=== PATIENT | female | born 1930 | race Caucasian/White ===

== ENCOUNTER 2017-09-13 09:27 | Emergency (ER) | payer MEDICARE, BC ==
[~2017-09-13] VITALS: Ht 160 cm; Wt 64.9 kg
[~2017-09-13 09:27] MED LIST: CARDIZEM CD120 MG PO; CARDIZEM CD240 MG PO; CIPRO250 M1 PO; COUMADIN 4 MG TA4 M1 PO; DIOVAN 80 MG TA80 M1 PO; HYDRALAZINE 2525 MG PO; HYZAAR 100-251 EACH PO; ICAPS MV TABLE1 EAC1 PO; KLOR-CON 1010 MEQ PO; LEVOTHYROXIN0.025 MG PO; LEVOTHYROXINE0.05 MG PO; LEXAPRO 10 MG T10 M2 PO; NORVASC5 MG PO; OXYBUTYNIN CHLO10 MG PO; POTASSIUM20 PO; PROTONIX40 M1 PO; PYRIDIUM200 MG PO; TEKTURNA150 MG PO; TUMS PO; VITAMIN D1000 UNI1 PO; XARELTO15 MG PO; ZANTAC 150MG T150 MG PO; ZOCOR 10 MG TAB10 MG PO
[2017-09-13 10:06] LABS: URINE BILIRUBIN NEGATIVE (Negative); URINE BLOOD 2+ (Negative); URINE CLARITY CLEAR; URINE COLOR ORANGE; URINE GLUCOSE-RANDOM TRACE (Negative); URINE KETONES NEGATIVE (Negative); URINE PROTEIN 1+ (Negative)
[2017-09-13 10:07] LABS: URINE LEUKOCYTES-REFLEX 3+ (Negative); URINE NITRITE-REFLEX POSITIVE (Negative)
[2017-09-13 10:14] LABS: WBC CLUMPS Many (None Seen)
[2017-09-13 10:15] LABS: SQUAMOUS 0-3 Few /LPF (0-3); URINE RBC 3-10 Few /HPF (0-2); URINE WBC-REFLEX >25 Many /HPF (0-5)
[2017-09-13 10:16] LABS: CASTS None Seen /LPF (None Seen); CRYSTALS None Seen /LPF (None Seen); TRANSITIONAL EPITHEL CELL 0-3 Few /LPF (None Seen)
[2017-09-13 10:25] LABS: ABSOLUTE BASOPHILS 0.1 thou/uL (0.0-0.2); ABSOLUTE MONOCYTES 0.7 thou/uL (0.0-1.2); ABSOLUTE NEUTROPHILS 7.2 thou/uL (1.6-8.1); BASOPHILS 1.1 %; EOSINOPHILS 0.3 %; HEMATOCRIT 35.4 % (37.0-47.0); HEMOGLOBIN 12.1 gm/dL (12.0-15.0); LYMPHOCYTES 10.8 %; MCHC 34.1 g/dL (28.0-37.0); MCV 84.8 fL (80.0-100.0); MONOCYTES 7.7 %; NUCLEATED RBCS 0 /100WBC; PLATELET COUNT* 409 thou/uL (150-400); POLYS 80.1 %; RBC 4.18 mil/uL (4.20-5.00); RDW-CV 12.7 % (10.5-14.5)
[2017-09-13 10:40] LABS: CALCIUM 8.7 mg/dL (8.5-10.1); CREATININE 1.1 mg/dL (0.6-1.3); POTASSIUM 4.1 mmol/L (3.5-5.1)
[2017-09-13 10:44] LABS: ALBUMIN 3.2 g/dL (3.4-5.0); TOTAL BILIRUBIN 0.4 mg/dL (<0.1-1.0); TOTAL PROTEIN 6.7 g/dL (6.4-8.2)
[2017-09-13 11:07] LABS: APTT 39.6 Seconds (25.0-31.3); INR 1.2
[2017-09-13] MEDS ORDERED: MACROBID 100 M100 M2 PO (11:55)
[2017-09-13 12:10] VITALS: BP 148/98
--- NOTE | 2017-09-13 14:43 | EKG ---
[place] [address] ELECTROCARDIOGRAM REPORT Name: CARDENASMEHDI Dev Room: [facility]#: [id number] Admission: 09/13/17 Attend Phys: Discharge: 09/13/17 Date of : [birth year] Report #: [id number] THIS REPORT FOR: //name// [facility] ED Test Date: 2017-09-13 Test Time: 10:04:10 Pat Name: MEHDI CARDENAS Department: Room: Gender: F Manager School: [employer] STUDENT : 1930 Requested By: Kimber Dobson Order Number: [id number] Korey MD: Remigio Hammer Measurements Intervals [place] Rate: 113 P: DC: QRS: 5 QRSD: 94 T: -10 QT: 335 QTc: 460 Interpretive Statements Atrial fibrillation Abnrm T, probable ischemia, anterolateral lds Baseline wander in lead(s) V3,V5,V6 No previous ECG available for comparison Electronically Signed On 09-13-2017 14:43:10 EPITAXIAL REACTOR TECHNICIAN by Remigio Hammer [email or web address] <ELECTRONICALLY SIGNED> By: Remigio Hammer MD, [facility] 09/13/17 1443 1004 1004 Remigio Hammer MD, FAC /EPI
== END 2017-09-13 12:10 | disposition home or self-care (01) ==
LOC: M.ERS 09:27
PROVIDERS: Nurse Practitioner Family; Personal Emergency Response Attendant
DX: N30.01 Acute cystitis with hematuria (principal); R60.0 Localized edema; I10 Essential (primary) hypertension; I48.91 Unspecified atrial fibrillation; E03.9 Hypothyroidism, unspecified

== ENCOUNTER 2019-01-29 13:37 | Emergency (ER) | payer MEDICARE, BC ==
[~2019-01-29] VITALS: Ht 160 cm; Wt 70.3 kg
[~2019-01-29 13:37] MED LIST changes: -LEVOTHYROXINE0.05 MG PO; +MACROBID 100 M100 M2 PO; +SYNTHROID75 MCG PO
[2019-01-29] MEDS ORDERED: LOSARTAN POTASS50 MG PO (14:04)
[2019-01-29 15:10] LABS: APTT 36.9 Seconds (25.0-31.3); INR 1.2
[2019-01-29 15:23] LABS: ABSOLUTE LYMPHOCYTES 1.2 thou/uL (0.8-5.3); ABSOLUTE MONOCYTES 1.3 thou/uL (0.0-1.2); ABSOLUTE NEUTROPHILS 11.6 thou/uL (1.6-8.1); BASOPHILS 0.2 %; EOSINOPHILS 0.1 %; HEMATOCRIT 37.9 % (37.0-47.0); HEMOGLOBIN 12.4 gm/dL (12.0-15.0); LIPASE 269 U/L (73-393); LYMPHOCYTES 8.6 %; MCH 27.8 pg (26.0-34.0); MCHC 32.8 g/dL (28.0-37.0); MCV 84.7 fL (80.0-100.0); MONOCYTES 8.9 %; MPV 8.1 fl. (7.2-11.1); NUCLEATED RBCS 0 /100WBC; PLATELET COUNT* 429 thou/uL (150-400); POLYS 82.2 %; RBC 4.47 mil/uL (4.20-5.00); RDW-CV 15.4 % (10.5-14.5); TROPONIN-I LEVEL <0.06 ng/mL (<0.06); WBC 14.1 thou/uL (4.0-11.0)
[2019-01-29 15:33] LABS: POTASSIUM 4.2 mmol/L (3.5-5.1)
[2019-01-29 15:34] LABS: URINE BILIRUBIN NEGATIVE (Negative); URINE BLOOD NEGATIVE (Negative); URINE CLARITY CLEAR; URINE COLOR YELLOW; URINE GLUCOSE-RANDOM NEGATIVE (Negative); URINE KETONES NEGATIVE (Negative); URINE LEUKOCYTES-REFLEX TRACE (Negative); URINE NITRITE-REFLEX NEGATIVE (Negative); URINE PROTEIN NEGATIVE (Negative); URINE SPECIFIC GRAVITY 1.015 (1.005-1.030)
[2019-01-29 15:38] LABS: TOTAL BILIRUBIN 0.7 mg/dL (<0.1-1.0); TOTAL PROTEIN 6.7 g/dL (6.4-8.2)
[2019-01-29 15:41] LABS: BACTERIA-REFLEX 1-9 Few /HPF (None Seen); HYALINE CASTS 0-3 Few /LPF (None Seen); SQUAMOUS >10 Many /LPF (0-3); URINE WBC-REFLEX 0-5 Rare /HPF (0-5)
[2019-01-29 15:43] LABS: CRYSTALS None Seen /LPF (None Seen); MUCUS None Seen strn/LPF (None Seen); URINE RBC None Seen /HPF (0-2)
[2019-01-29] MEDS ORDERED: NORCO 5-325 TA1 EAC1 PO (17:10)
[2019-01-29] MEDS ORDERED: ONDANSETRON HCL4 M2 PO (17:10)
[2019-01-29 17:25] VITALS: BP 153/63
--- NOTE | 2019-01-30 15:37 | EKG ---
[place] [address] ELECTROCARDIOGRAM REPORT Name: MEHDI CARDENAS Room: [facility]#: [id number] Admission: 01/29/19 Attend Phys: Discharge: 01/29/19 Date of : [birth year] Report #: [id number] THIS REPORT FOR: //name// [facility] ED Test Date: 2019-01-29 Test Time: 13:55:07 Pat Name: MEHDI CARDENAS Department: Room: Gender: F Manager Nicu: : 1930 Requested By: Sade Hong Order Number: [id number] MD: Ty Orozco Measurements Intervals [place] Rate: 127 P: [place]: QRS: 27 QRSD: 82 T: QT: 269 QTc: 392 Interpretive Statements Atrial fibrillation Repolarization abnormality, prob rate related Compared to ECG 09/13/2017 10:04:10 no significant change Electronically Signed On 01-30-2019 15:37:08 CDT by Ty Orozco [email or web address] <ELECTRONICALLY SIGNED> By: Ty Orozco MD, [facility] 01/30/19 1537 1355 1359 Ty Orozco MD, FACC /EPI
== END 2019-01-29 17:26 | disposition home or self-care (01) ==
LOC: M.ERS 13:37
PROVIDERS: Nurse Practitioner Family
DX: K52.9 Noninfective gastroenteritis and colitis, unspecified (principal); I48.91 Unspecified atrial fibrillation; I10 Essential (primary) hypertension; E07.9 Disorder of thyroid, unspecified; Z91.041 Radiographic dye allergy status

== ENCOUNTER 2019-02-13 13:10 | Inpatient (IN) | payer MEDICARE, BC ==
[~2019-02-13] VITALS: Ht 160 cm; Wt 68.6 kg
[~2019-02-13 13:10] MED LIST changes: +LOSARTAN POTASS50 MG PO; +NORCO 5-325 TA1 EAC1 PO; +ONDANSETRON HCL4 M2 PO
[2019-02-13 13:26] VITALS: BP 109/86
[2019-02-13 14:36] LABS: ABSOLUTE BASOPHILS 0.1 thou/uL (0.0-0.2); ABSOLUTE LYMPHOCYTES 1.9 thou/uL (0.8-5.3); ABSOLUTE MONOCYTES 1.4 thou/uL (0.0-1.2); ABSOLUTE NEUTROPHILS 12.7 thou/uL (1.6-8.1); BASOPHILS 0.4 %; EOSINOPHILS 0.1 %; HEMATOCRIT 38.8 % (37.0-47.0); HEMOGLOBIN 12.6 gm/dL (12.0-15.0); LYMPHOCYTES 11.6 %; MCH 27.5 pg (26.0-34.0); MCHC 32.4 g/dL (28.0-37.0); MCV 84.7 fL (80.0-100.0); MONOCYTES 8.5 %; MPV 7.6 fl. (7.2-11.1); NUCLEATED RBCS 0 /100WBC; PLATELET COUNT* 637 thou/uL (150-400); POLYS 79.4 %; RBC 4.58 mil/uL (4.20-5.00); RDW-CV 14.8 % (10.5-14.5)
[2019-02-13 14:47] LABS: ANION GAP 11 mmol/L (7-16); APTT 32.9 Seconds (25.0-31.3); BUN 20 mg/dL (7-18); CALCIUM 8.6 mg/dL (8.5-10.1); CHLORIDE 101 mmol/L (98-107); CO2 26 mmol/L (21-32); CREATININE 1.3 mg/dL (0.6-1.3); GLUCOSE 89 mg/dL (70-99); INR 1.1; POTASSIUM 4.4 mmol/L (3.5-5.1); PROTIME 11.5 Seconds (9.20-11.50); SODIUM 138 mmol/L (136-145)
[2019-02-13 14:57] LABS: ALKALINE PHOSPHATASE 142 U/L (46-116); LIPASE 553 U/L (73-393); MAGNESIUM 2.2 mg/dL (1.8-2.4); NT-PRO BRAIN NAT PEPTIDE 2945 pg/mL (<300); SGOT 17 U/L (15-37); SGPT 25 U/L (30-65); TOTAL BILIRUBIN 0.3 mg/dL (<0.1-1.0); TOTAL PROTEIN 6.6 g/dL (6.4-8.2); TROPONIN-I LEVEL <0.06 ng/mL (<0.06)
--- NOTE | 2019-02-13 15:10 | EKG ---
[place] [address] ELECTROCARDIOGRAM REPORT Name: MEHDI CARDENAS Room: [facility]#: [id number] Admission: 02/13/19 Attend Phys: Discharge: Date of : [birth year] Report #: [id number] THIS REPORT FOR: //name// [facility] ED Test Date: 2019-02-13 Test Time: 13:41:02 Pat Name: MEHDI CARDENAS Department: Room: Gender: F Supervisor Sample Preparation: [facility] : 1930 Requested By: Evna Curran Order Number: [id number] MD: Ty Orozco Measurements Intervals [place] Rate: 145 P: [place]: QRS: 9 QRSD: 80 T: 208 QT: 256 QTc: 398 Interpretive Statements Atrial fibrillation with rapid V-rate Repolarization abnormality, prob rate related Compared to ECG 01/29/2019 13:55:07 No significant changes Electronically Signed On 02-13-2019 15:10:16 CDT by Ty Orozco [email or web address] <ELECTRONICALLY SIGNED> By: Ty Orozco MD, [facility] 02/13/19 1510 D: [id number] Ty Orozco MD, FACC /EPI
[2019-02-13 16:44] VITALS: BP 136/94
[2019-02-13] MEDS ORDERED: SYNTHROID75 MCG PO (17:21)
[2019-02-13 17:39] VITALS: BP 162/77
--- NOTE | 2019-02-13 17:45 | NUR ---
RECEIVED REPORT FROM ARIAS IN ED AND ASSUMED CARE OF PT @ 7260.PT IS A/O X4 BUT NATIVE,VSS,TRACING AFIB ON THE MONITOR.IV PATENT WITH CARDIZEM INFUSING @ 10ML/HR.PT IS CALM AND COOPERATIVE WITH NO C/O PAIN AT TIME OF THE ASSESSMENT.PT INFORMED OF PLAN OF CARE AND COMMUNICATES UNDERSTANDING. PT LEFT SITTING AT THE EDGE OF THE BED WITH FAMILY AT BEDSIDE.HOURLY ROUNDING COMPLETED FOR PT SAFETY.CALL LIGHT AND FALL PRECAUTIONS IN PLACE.WILL CONTINUE TO MONITOR.
[2019-02-13] MEDS ORDERED: LEXAPRO 10 MG T10 M2 PO (18:09)
[2019-02-13 19:45] VITALS: BP 124/70
[2019-02-14] VITALS (7 sets, daily range): BP systolic 123–169; BP diastolic 54–96
[2019-02-14 00:59] LABS: URINE BILIRUBIN NEGATIVE (Negative); URINE BLOOD NEGATIVE (Negative); URINE CLARITY CLEAR; URINE COLOR YELLOW; URINE GLUCOSE-RANDOM NEGATIVE (Negative); URINE KETONES NEGATIVE (Negative); URINE LEUKOCYTES-REFLEX NEGATIVE (Negative); URINE NITRITE-REFLEX NEGATIVE (Negative); URINE PROTEIN NEGATIVE (Negative); URINE SPECIFIC GRAVITY <= 1.005 (1.005-1.030); URINE UROBILINOGEN 0.2 E.U./dl (0.2-1.0)
[2019-02-14 04:41] LABS: ABSOLUTE BASOPHILS 0.1 thou/uL (0.0-0.2); ABSOLUTE EOSINOPHILS 0.1 thou/uL (0.0-0.7); ABSOLUTE LYMPHOCYTES 2.1 thou/uL (0.8-5.3); ABSOLUTE MONOCYTES 0.9 thou/uL (0.0-1.2); ABSOLUTE NEUTROPHILS 5.9 thou/uL (1.6-8.1); BASOPHILS 0.7 %; EOSINOPHILS 0.8 %; HEMATOCRIT 35.5 % (37.0-47.0); HEMOGLOBIN 11.7 gm/dL (12.0-15.0); LYMPHOCYTES 23.2 %; MCH 27.9 pg (26.0-34.0); MCHC 33.1 g/dL (28.0-37.0); MCV 84.2 fL (80.0-100.0); MONOCYTES 10.4 %; MPV 7.9 fl. (7.2-11.1); NUCLEATED RBCS 0 /100WBC; PLATELET COUNT* 620 thou/uL (150-400); POLYS 64.9 %; RBC 4.21 mil/uL (4.20-5.00); RDW-CV 14.8 % (10.5-14.5)
[2019-02-14 04:52] LABS: CALCIUM 8.6 mg/dL (8.5-10.1)
--- NOTE | 2019-02-14 06:53 | NUR ---
RECEIVED REPORT AND ASSUMED CARE AT 1900. VSS. CARDIAC MONITORING IN PLACE. PT DENIES COMPLAINTS OF PAIN ASSESSMENT COMPLETED CHARTED. PT UP SBA WITH CANE, ON RA. BED LOCKED IN LOWEST POSITION, CALL LIGHT WITHIN REACH, BED ALARM ON. NO ACUTE CHANGES THROUGH THE NIGHT, HOURLY ROUNDING COMPLETED AND ALL NEEDS MET.
--- NOTE | 2019-02-14 10:49 | 2DMMODE ---
[place] [address] 2 D/M-MODE ECHOCARDIOGRAM Name: MEHDI CARDENAS Room: [address] IN [facility]#: [id number] Admission: 02/13/19 Attend Phys: Marco May, Discharge: Date of : [birth year] Date of Service: 02/14/19 1048 Report #: [id number] THIS REPORT FOR: //name// APPROVED REPORT Study performed: 02/14/2019 09:58:05 EXAM: Comprehensive 2D, Doppler, and color-flow Echocardiogram Patient Location: In-Patient Room #: [facility] Status: routine BSA: 1.72 HR: 75 bpm BP: 162/87 mmHg Rhythm: Atrial Fibrillation Other Information Study Quality: Good Indications Atrial Fibrillation 2D Dimensions IVSd: 8.28 (7-11mm) LVOT Diam: 19.67 (18-24mm) LVDd: 45.90 mm PWd: 10.43 (7-11mm) Ascending Ao: 25.94 (22-36mm) LVDs: 32.10 (25-40mm) Aortic Root: 28.81 mm Volumes Left Atrial Volume (Systole) LA ESV Index: 58.70 mL/m2 Aortic Valve AoV Peak Paulo.: 1.18 m/s AO Peak Gr.: 5.59 mmHg LVOT Max P.36 mmHg AO Mean Gr.: 3.12 mmHg LVOT Mean P.14 mmHg LVOT Max V: 0.77 m/s AO V2 VTI: 23.48 cm LVOT Mean V: 0.49 m/s FIDEL (VTI): 1.98 cm2 LVOT V1 VTI: 15.31 cm Mitral Valve MV Decel. Time: 161.61 ms MV E Max Paulo.: 0.86 m/s MV PHT: 46.87 [place] [address] 2 D/M-MODE ECHOCARDIOGRAM Name: MEHDI CARDENAS Room: [address] IN .R.#: [id number] Admission: 02/13/19 Attend Phys: Marco May, Discharge: Date of : [birth year] Date of Service: 02/14/19 1048 Report #: [id number] MVA (PHT): 4.69 cm2 TDI E/Lateral E': 6.62 E/Medial E': 7.17 Medial E' Paulo.: 0.12 m/s Lateral E' Paulo.: 0.13 m/s Pulmonary Valve PV Peak Paulo.: 0.98 m/s PV Peak Gr.: 3.87 mmHg Tricuspid Valve RAP Estimate: 5.00 mmHg TR Peak Gr.: 22.00 mmHg RVSP: 27.00 mmHg PA Pressure: 27.00 mmHg Left Ventricle The left ventricle is normal size. There is normal LV segmental wall motion. There is normal left ventricular wall thickness. Left ventricular systolic function is normal. The left ventricular ejection fraction is within the normal range. LVEF is 50%. This study is not technically sufficient to allow evaluation of the LV diastolic function due to atrial fibrillation. Right Ventricle The right ventricle is normal size. The right ventricular systolic function is normal. Atria Left atrium is severely dilated. The right atrium size is normal. Aortic Valve Mild aortic valve sclerosis. No aortic regurgitation is present. There is no aortic valvular stenosis. Mitral Valve The mitral valve is normal in structure. Mild mitral regurgitation. No evidence of mitral valve stenosis. Tricuspid Valve The tricuspid valve is normal in structure. Mild tricuspid regurgitation. No pulmonary hypertension. Pulmonic Valve The pulmonary valve is normal in structure. There is no pulmonic [place] [address] 2 D/M-MODE ECHOCARDIOGRAM Name: MEHDI CARDENAS Room: [address] IN [facility]#: [id number] Admission: 02/13/19 Attend Phys: Marco May, Discharge: Date of : [birth year] Date of Service: 02/14/19 1048 Report #: [id number] Great Vessels The aortic root is normal in size. IVC is normal in size and collapses >50% with inspiration. Pericardium There is no pericardial effusion. <Conclusion> LVEF is 50%. There is normal LV segmental wall motion. Left atrium is severely dilated. There is no aortic valvular stenosis. No aortic regurgitation is present. Mild mitral regurgitation. Mild tricuspid regurgitation. No pulmonary hypertension. <ELECTRONICALLY SIGNED> By: Faraz King MD, FACC 02/14/19 1048 1048 1048 Faraz King MD, FACC /INF
--- NOTE | 2019-02-14 14:51 | NUR ---
INITIAL ASSESSMENT: Pt evaluated for d/c planning needs. Reviewed chart and spoke with nurse, pt and pt's son. Pt is alert and oriented and MOHEGAN. Pt lives in house with son and D-I-L. Pt was independent with ADL's and used cane or walker for ambulation. Pt said she had home health years ago, and does not recall name of company. Pt plans on returning home on d/c from hospital. Will remain available to assist as needed.
--- NOTE | 2019-02-14 17:40 | NUR ---
PATIENT DENIES SOA OR CP. TAKING PO WELL. SR SB CARDIZEM GTT OFF.
--- NOTE | 2019-02-15 03:30 | NUR ---
RECEIVED REPORT AND ASSUMED CARE AT 1900. VSS. CARDIAC MONITORING IN PLACE. PT DENIES COMPLAINTS OF PAIN. ASSESSMENT COMPLETED CHARTED. PT UP SBA WITH CANE, ON RA. BED LOCKED IN LOWEST POSITION, CALL LIGHT WITHIN REACH.
[2019-02-15 04:00] VITALS: BP 146/58
[2019-02-15 08:00] VITALS: BP 154/75
--- NOTE | 2019-02-15 08:00 | NUR ---
AM ASSESSMENT COMPLETE, DEFER TO COMPUTER CHARTING. CADIAC MONITOR TRACKING SB WITH OCCANSIONAL PAC'S. DENIES CHEST PAIN, DIZZINESS, SHORTNESS OF BREATH AT THIS TIME. REPORTING HAVING HEADACHE. HOB ELEVATED, CALL LIGHT WITHIN REACH. WILL MONITOR.
--- NOTE | 2019-02-15 08:51 | NUR ---
PATIENT CALLING NEEDING REQUESTING ASSIST TO BATHROOM, BED ALARM GOING OFF AT THIS TIME. NURSE TO ROOM - STARTING TO GIVEN ASSSIT TO PATIENT ON TRANSFERING TO SIDE OF BED TO SIT UP THEN GO TO BATHROOM. NOTED PATIENT RIGHT ARM HANGING OFF BED AND PATIENT NOT AWARE OF ARM HANGING OFF BED - PATIENT ABLE TO SIT UP WITH ASSIST. NOTED WEAKNESS IN RIGHT LEG - DENIES DIZZINESS, ANY PAIN OR NUMBNESS THIS TIME. NOTIFIED PATIENT NOT TO GET UP. RESSESMENT COMPLETE. NOTED PATIENT HAVING RIGHT SIDE WEAKNESS, DEVELOPING RIGHT SIDE FACIAL DROOP AND DIFFICULTY SPEECHING. RAPID RESPONSE TEAM CALLED, CODE STROKE CALLED.
--- NOTE | 2019-02-15 09:28 | NUR ---
RN CALLED S/P CODE STROKE ON PATIENT. LAST WELL KNOWN WAS 0800. WHEN RN IN ROOM ASSISTING PATIENT TO BATHROOM AT 0851 - PATIENT ACTIVELY STARTED TO HAVE SYMPTOMS. PATIENT HAD RIGHT SIDED WEAKNESS, NEGLECT, SENSORY DEFICIT, EXPRESSIVE APHASIA, AND WORD SCRAMBLE. NIH - 10. 0854 - DR. MARTINEZ PAGED. 0855 - BLOOD SUGAR WAS 116 AND CODE STROKE CALLED. 0856 - CT CALLED TO CLEAR TABLE. 0901 - DR. HERMOSILLO PAGED. 0908 - PATIENT TO CT SCAN. 09 - PATIENT BACK FROM CT SCAN. 24 - CT RESULTS WERE NEGATIVE FOR BLEED - REVIEWED BY DR. VALDEZ. 0925 - LABS COLLECTED FROM PATIENT. THE PATIENT HAS HISTORY OF AFIB AND CURRENTLY ON A BLOOD THINNER SO DR. HERMOSILLO NOTED THE PATIENT WOULD NOT BE A CANDIDATE FOR TPA. DR. HERMOSILLO INDICATED A CTA WOULD BE BENEFICIAL FOR PATIENT TO ASSESS FOR CLOTS. PATIENT HAS AN IODINE ALLERGY - DR. HERMOSILLO NOTIFIED. DR. HERMOSILLO ASKED RN TO COMMUNICATE WITH DR. MARTINEZ TO REVIEW PLAN AND PRE-TREATMENT MEDICATIONS. RN SPOKE TO DR. MARTINEZ AT 0933 - WILL WAIT ON LAB RESULTS AND THEN CALL BACK FOR FURTHER ORDERS. 0940 - NIH - 8. 0955 - LAB WORK BACK - CREATININE WAS 1.1. 0958 - DR. MARTINEZ PAGED TO REPORT LAB WORK AND RECEIVE ADDITIONAL ORDERS NEEDED. 1000 - DR. MARTINEZ AT THE BEDSIDE TALKING TO PATIENT AND SON.
[2019-02-15 09:48] LABS: BUN 14 mg/dL (7-18); CALCIUM 8.4 mg/dL (8.5-10.1); CO2 26 mmol/L (21-32); CREATININE 1.1 mg/dL (0.6-1.3); GLUCOSE 100 mg/dL (70-99); POTASSIUM 4.3 mmol/L (3.5-5.1)
[2019-02-15 09:59] LABS: ALBUMIN 2.7 g/dL (3.4-5.0); ALKALINE PHOSPHATASE 117 U/L (46-116); CHOLESTEROL 108 mg/dL (<200); HDL CHOLESTEROL 53 mg/dL (>40); LDL CHOLESTEROL 31 mg/dL (<100); SGOT 12 U/L (15-37); SGPT 21 U/L (30-65); TOTAL BILIRUBIN 0.5 mg/dL (<0.1-1.0); TOTAL PROTEIN 6.2 g/dL (6.4-8.2); TRIGLYCERIDE 121 mg/dL (<150); VLDL 24 mg/dL (<40)
[2019-02-15 10:00] LABS: SERUM ASSESSMENT Clear
--- NOTE | 2019-02-15 10:38 | NUR ---
MUD JACK OPERATOR: PAGED TO ROOM FOR CODE STROKE. PATIENT EXHIBITED RUE WEAKNESS, SLURRED SPEECH, APHASIA, DIFFICULTY NAMING WORDS, INITIAL NIHSS 11. PT TAKEN TO RADIOLOGY FOR STAT CT HEAD. RETURN TO FLOOR WITH REPEAT NIHSS 8 IMPROVED STRENGTH. PATIENT SON ARRIVED REPORTED PATIENT HAS VISION DEFICITS DUE TO MACULAR DEGENERATION. REPORT TO DR. MARTINEZ. REPEAT NIHSS 5, CONTINUED IMPROVEMENT WITH RUE, HAS CLUMSINESS WITH RIGHT HAND, SLURRED SPEECH. CTA PENDING.
[2019-02-15 11:14] LABS: CHLORIDE 103 mmol/L (98-107)
[2019-02-15 11:49] LABS: ANION GAP 6 mmol/L (7-16); SODIUM 135 mmol/L (136-145)
[2019-02-15 12:00] VITALS: BP 171/64
[2019-02-15 16:00] VITALS: BP 190/65
--- NOTE | 2019-02-15 17:45 | NUR ---
I have reviewed the documentation by OTONIEL PARKER from TODAY to 02/15/19 and I concur with it. PRAKASH OREILLY
--- NOTE | 2019-02-15 18:28 | NUR ---
PRODUCTION PLANNER SCHEDULER TRACKING WITH NO CHANGE IN RHYTHM. MRI/MRA COMPLETED EARLIER, RESULTS REVIEWED BY DR THAYER WHOM SPOKE WITH DR HERMOSILLO - NO NEW ORDERS RECEIVED. PATIENT SYMPTOMS/WEAKNESS SLOWLY RESOLVING DURING SHIFT. SPEECH THERAY IN EARLIER EVAL AND APPROVED DIET, REPORING NO DIFFICULTY WITH SWALLOWING NOTED. CONTINUES TO HAVING RIGHT SIDE WEAKNESS, AND NEGLECT OF RIGHT SIDE AT TIMES. STATES HAS NUMNBESS, TINGLING IN RIGHT HAND/ARM. SPEECH IMPROVING. DENIES DIZZINESS, HEADACHE AT THIS TIME. BED ALARM REMAINS ON FOR SAFETY. INSTURCTED TO CALL NURSING WITH ANY CHANGE IN CHANGE IN CONDITION PROMPTLY, VERBALIZED UNDERSTANDING. WILL CONTINUE TO CLOSELY MONITOR.
[2019-02-15 19:45] VITALS: BP 187/83
[2019-02-16] VITALS: BP 179/63
[2019-02-16 04:00] VITALS: BP 174/73
[2019-02-16 05:12] LABS: ABSOLUTE EOSINOPHILS 0.1 thou/uL (0.0-0.7); ABSOLUTE LYMPHOCYTES 1.7 thou/uL (0.8-5.3); ABSOLUTE MONOCYTES 1.1 thou/uL (0.0-1.2); ABSOLUTE NEUTROPHILS 7.1 thou/uL (1.6-8.1); BASOPHILS 0.4 %; HEMATOCRIT 35.7 % (37.0-47.0); HEMOGLOBIN 11.6 gm/dL (12.0-15.0); LYMPHOCYTES 16.7 %; MCH 27.5 pg (26.0-34.0); MCHC 32.4 g/dL (28.0-37.0); MONOCYTES 10.9 %; MPV 7.6 fl. (7.2-11.1); NUCLEATED RBCS 0 /100WBC; PLATELET COUNT* 595 thou/uL (150-400); RDW-CV 14.7 % (10.5-14.5)
[2019-02-16 05:27] LABS: ALBUMIN 2.5 g/dL (3.4-5.0); CALCIUM 8.1 mg/dL (8.5-10.1); CREATININE 0.8 mg/dL (0.6-1.3); POTASSIUM 3.7 mmol/L (3.5-5.1); TOTAL BILIRUBIN 0.5 mg/dL (<0.1-1.0); TOTAL PROTEIN 5.7 g/dL (6.4-8.2)
[2019-02-16 05:30] LABS: PREALBUMIN 21.5 mg/dL (18.0-35.7)
--- NOTE | 2019-02-16 06:50 | NUR ---
PT SLEPT MOST OF SHIFT. ASSESSMENT DOCUMENTED. MEDS GIVEN PER E-MAR. IV PATENT, FLUIDS INFUSING. NO REPORTS OF PAIN THIS SHIFT. PT UP WITH 1 TO BSC. WILL CONTINUE WITH PLAN OF CARE.
[2019-02-16 08:00] VITALS: BP 184/90
--- NOTE | 2019-02-16 09:23 | CON ---
[address] [address] CONSULTATION Name: MEHDI CARDENAS Room: [address] IN .R.#: [id number] Admission: 02/13/19 Attend Phys: Marco May MD Discharge: Date of : [birth year] Report #: [id number] THIS REPORT FOR: //name// CC: Marco Rasmussen NEUROLOGY CONSULTATION HISTORY OF PRESENT ILLNESS: The patient is an 88-year-old female who was admitted to the hospital for left knee pain. Apparently, the patient has an old injury to the right knee and has now developed left knee pain. Last week, she was seen by the orthopedic surgeon who gave her a steroid injection, but this was not helpful. While in the hospital, the patient this morning developed right facial droop and right-sided weakness. A code stroke was called. Since that time, the patient's symptoms have improved, but she has not returned completely to baseline. The patient is currently on Xarelto and has been on long-term anticoagulation for atrial fibrillation. PAST MEDICAL HISTORY: Hypertension, atrial fibrillation, thyroid disease, irritable bowel syndrome, macular degeneration, hyperlipidemia, depression/anxiety, neurogenic bladder and gastroesophageal reflux. PAST SURGICAL HISTORY: Negative. MEDICATIONS: Aspirin 81 mg daily, diltiazem 180 mg daily, escitalopram 10 mg daily, levothyroxine 75 mcg daily, losartan 50 mg daily, pantoprazole 40 mg daily, potassium 20 mEq daily, Xarelto 15 mg daily and sotalol 80 mg b.i.d. ALLERGIES: IODINE. PHYSICAL EXAMINATION: VITAL SIGNS: Temperature is 36.6, pulse rate 51, respiratory rate 20, blood pressure 146/58 and bedside pulse oximetry 98% on room air. NEUROLOGIC: Cranial nerves 2-12 are grossly intact. Motor exam demonstrates weakness of the right upper extremity. In addition to weakness in the hand, the patient also has weakness in the shoulder. The right plantar response is extensor and the left plantar response is flexor. The patient has difficulty performing ggcmbt-gh-osfb, but it is difficult to know whether this is from dysmetria or the patient's difficulty with vision secondary to macular degeneration. Gait was not tested. LABORATORY WORK: Hematology: White blood cell count 9, hemoglobin 11.7, hematocrit 35.5 and platelet count 620,000. INR 1.1. Urinalysis negative. Chemistry: Sodium 135, potassium 4.3, chloride 106, carbon dioxide 26, BUN 14, creatinine 1.1, GFR 47 and glucose 100. Liver functions unremarkable with the exception of alkaline phosphatase, which is 117. Triglycerides 121, cholesterol 108, LDL cholesterol 24 and HDL [place] 53[place] [address] CONSULTATION Name: MEHDI CARDENAS Room: [address] IN M.R.#: [id number] Admission: 02/13/19 Attend Phys: Marco May MD Discharge: Date of : [birth year] Report #: [id number] IMAGING STUDIES: CT scan of the head demonstrates mdwpkcrn-fj-jlcltu cerebral atrophy. No acute hemorrhagic process is noted and no obvious emboli are seen in the [place] region. 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 She has had improvement. Unfortunately, she is not a candidate for TPA given her chronic use of anticoagulant medication. Aspirin has been added to her medication regimen. In addition, a CT angiogram had been considered to look for an obvious clot; however, no mention was made of a clot on the CT scan and the patient has improved. In addition, the patient has marginal kidney function and is allergic to IODINE. At this point, I do not think a CTA would be of benefit. I am going to order a carotid ultrasound to complete the stroke workup. The family is quite concerned about the knee pain and although x-rays have been done. They are concerned that she could have a clot there. I explained a clot there would not go to the brain, but I will order vascular studies of the lower extremities to look for arterial stenosis. I thank you for your kind referral of the patient and will continue to follow her with you. <ELECTRONICALLY SIGNED> By: Isha Dubois DO 02/16/19 0923 1105 0114Rsae Dubois DO /nt
[2019-02-16 10:08] LABS: GLYCOHEMOGLOBIN (HGB A1C) 5.8 % (4.8-5.6)
[2019-02-16 11:00] VITALS: BP 183/68
--- NOTE | 2019-02-16 11:20 | NUR ---
PT A/O, NIH 2. TELE TRACKING SR/SB WITH PAC'S AND ALL VSS ON ROOM AIR. DENIES CP, SOA. FAMILY AT BEDSIDE THIS AM. EDUCATED ON S/S OF STROKE, PREVENTION, SAFETY AND PLAN OF CARE. PLEASE SEE ASSESSMENT FOR ADDITIONAL INFORMATION. WILL CONT TO MONITOR
--- NOTE | 2019-02-16 13:52 | EKG ---
[place] [address] ELECTROCARDIOGRAM REPORT Name: MEHDI CARDENAS Room: [address] ADM IN M.R.#: [id number] Admission: 02/13/19 Attend Phys: Marco May MD Discharge: Date of : [birth year] Report #: [id number] THIS REPORT FOR: //name// [facility] Test Date: 2019-02-15 Test Time: 08:56:26 Pat Name: MEHDI CARDENAS Department: Room: [address] Gender: F Appliance Sales Associate: : 1930 Requested By: Merary Ulloa Order Number: [id number] Korey MD: Ty Orozco Measurements Intervals [place] Rate: 62 P: 0 HI: 59 QRS: 12 QRSD: 92 T: 5 QT: 464 QTc: 472 Interpretive Statements Sinus rhythm with pac's Short HI interval ST elevation, consider lateral injury Artifact in lead(s) I,II,III,aVR,aVL,aVF and baseline wander in lead(s) II Compared to ECG 02/13/2019 13:41:02 Atrial premature complex(es) now present Short HI interval now present Possible ischemia now present ST (T wave) deviation now present Atrial fibrillation no longer present Electronically Signed On 6-27-2019 13:51:57 CDT by Ty Orozco [email or web address] <ELECTRONICALLY SIGNED> By: Ty Orozco MD, [facility] 02/16/19 1351 0856 0856 Ty Orozco MD, [facility] /EPI
--- NOTE | 2019-02-16 14:03 | EKG ---
[place] [address] ELECTROCARDIOGRAM REPORT Name: MEHDI CARDENAS Room: [address] ADM IN M.R.#: [id number] Admission: 02/13/19 Attend Phys: Marco May MD Discharge: Date of : [birth year] Report #: [id number] THIS REPORT FOR: //name// [facility] Test Date: 2019-02-16 Test Time: 08:26:12 Pat Name: MEHDI CARDENAS Department: Room: [address] Gender: F Pbx Operator: : 1930 Requested By: Merary Ulloa Order Number: [id number] Reading MD: Ty Orozco Measurements Intervals [place] Rate: 54 P: -70 VA: 109 QRS: 13 QRSD: 87 T: 155 QT: 542 QTc: 514 Interpretive Statements Ectopic atrial rhythm Atrial premature complex Short VA interval Nonspecific T abnrm, anterolateral leads Prolonged QT interval Compared to ECG 02/13/2019 13:41:02 Ectopic atrial rhythm now present Atrial premature complex(es) now present Short VA interval now present Prolonged QT interval now present Electronically Signed On 02-16-2019 14:03:39 CDT by Ty Orozco [email or web address] <ELECTRONICALLY SIGNED> By: Ty Orozco MD, [facility] 02/16/19 1403 5 5 yT Orozco MD, [facility] /EPI
[2019-02-16 16:00] VITALS: BP 170/60
--- NOTE | 2019-02-16 17:15 | NUR ---
RE:heart failure medication education I provided patient with a heart failure medication information handout. We discussed losartan and hydralazine. All questions were answered. Pharmacy available for any future questions. Thank you.
[2019-02-16 19:30] VITALS: BP 149/57
[2019-02-17] VITALS: BP 171/62
--- NOTE | 2019-02-17 01:47 | NUR ---
ASSUMED CARE OF PT AT 1900. PT IS ALERT AND ORIENTED. VSS. PERRLA. NO COMPLAINTS OF PAIN. NIH IS A 1. PT IS IN SINUS RYTHM ON THE TELEMETRY. PT IS RESTING COMFORTABLY IN BED. RESPIRATIONS ARE EVEN AND NONLABORED. WILL CONTINUE TO MONITOR PT.
[2019-02-17 04:00] VITALS: BP 145/49
[2019-02-17 08:00] VITALS: BP 204/86
[2019-02-17 11:46] LABS: ABSOLUTE BASOPHILS 0.1 thou/uL (0.0-0.2); ABSOLUTE EOSINOPHILS 0.1 thou/uL (0.0-0.7); ABSOLUTE MONOCYTES 1.3 thou/uL (0.0-1.2); BASOPHILS 0.9 %; EOSINOPHILS 1.1 %; HEMATOCRIT 34.2 % (37.0-47.0); HEMOGLOBIN 11.3 gm/dL (12.0-15.0); LYMPHOCYTES 21.3 %; MCH 27.9 pg (26.0-34.0); MCHC 32.9 g/dL (28.0-37.0); MCV 84.8 fL (80.0-100.0); MONOCYTES 13.7 %; MPV 8.2 fl. (7.2-11.1); NUCLEATED RBCS 0 /100WBC; PLATELET COUNT* 546 thou/uL (150-400); RBC 4.03 mil/uL (4.20-5.00); RDW-CV 14.8 % (10.5-14.5); WBC 9.6 thou/uL (4.0-11.0)
[2019-02-17 12:05] VITALS: BP 117/57
[2019-02-17 15:52] VITALS: BP 167/59
--- NOTE | 2019-02-17 17:27 | NUR ---
RECEIVED REPORT FROM YANELY HAMMER. ASSUMED CARE OF PT AROUND 0730. PT A&O X4, HARD OF HEARING. VSS, BP HIGH THIS AM - LOWERED WITH MEDICATIONS PER EMAR. AM ASSESSMENT AND VITALS COMPLETED CHARTED. PAPER PATTERN INSPECTOR IN PLACE TRACING SR WITH PAC'S TO SINUS ARRHYTHMIA WITH NO CHAGNES THIS SHIFT. IV INTACT TO [facility] AC. PT UP WITH SBA TO BEDSIDE COMMODE SEVERAL TIMES TO URINATE; PT HAD 3 SMALL BM'S THIS SHIFT. WOUND TO SACRUM/COCCYX NOTED - PICTURE TAKEN AND SILVER FOAM PLACED. FAMILY VISITED THIS AM AND THIS EVENING. PT TOLERATING DIET. NIH 1 FOR MINOR FACIAL DROOP. PT HOPING TO GO HOME TOMORROW. PT CURRENETLY SITTING UP EATING DINNER. FALL PRECAUTIONS IN PLACE. CALL LIGHT IS WITHIN REACH. HOURLY ROUNDING PERFORMED. WCTM FOR DURATION OF SHIFT.
[2019-02-17 19:50] VITALS: BP 185/67
[2019-02-18] VITALS: BP 178/73
[2019-02-18 04:46] VITALS: BP 184/55
--- NOTE | 2019-02-18 04:52 | NUR ---
PT CARE ASSUMED AT 1930. SAT MAINTAINED IN RA. ALERT AND ORIENTED X4. CALL LIGHT WITHIN REACH AND BED IN LOW POSITION. DENIES PAIN AND SOB. HOURLY ROUNDING DONE FOR PT SAFETY.
[2019-02-18 05:02] LABS: HEMATOCRIT 35.2 % (37.0-47.0); HEMOGLOBIN 11.5 gm/dL (12.0-15.0); MCH 27.6 pg (26.0-34.0); MCHC 32.7 g/dL (28.0-37.0); MCV 84.5 fL (80.0-100.0); MPV 7.9 fl. (7.2-11.1); RBC 4.16 mil/uL (4.20-5.00); RDW-CV 14.8 % (10.5-14.5); WBC 10.1 thou/uL (4.0-11.0)
[2019-02-18 05:37] LABS: ALBUMIN 2.5 g/dL (3.4-5.0); CALCIUM 8.7 mg/dL (8.5-10.1); CREATININE 0.9 mg/dL (0.6-1.3); MAGNESIUM 2.2 mg/dL (1.8-2.4); POTASSIUM 3.7 mmol/L (3.5-5.1); TOTAL BILIRUBIN 0.6 mg/dL (<0.1-1.0); TOTAL PROTEIN 5.9 g/dL (6.4-8.2)
[2019-02-18 08:44] VITALS: BP 166/63
[2019-02-18] MEDS ORDERED: ELIQUIS5 MG PO (12:12)
[2019-02-18] MEDS ORDERED: SORINE 80 MG TA80 M1 PO (12:16)
[2019-02-18 13:01] VITALS: BP 178/76
--- NOTE | 2019-02-18 13:55 | NUR ---
Following for d/c planning needs. Received order from physician to arrange home health services. Spoke with pt and pt's D-I-L. They were given a list of home health companies, and want to use [facility]. Called [facility] and faxed referral. No other needs identified. [facility] [phone]; fax [phone]
--- NOTE | 2019-02-18 14:11 | NUR ---
ASSUMED CARE OF PT AROUND 0730 THIS AM. REFER TO ASSESSMENT. PT HAS ORDERS TO DC HOME WITH SON AND DAUGHTER IN LAW. HOME HEALTH SET UP WITH CASE MANAGEMENT. DC INSTRUCTIONS GIVEN TO PT AND FAMILY AND VERBALIZES UNDERSTANDING. NO OTHER CONCERNS AT THIS TIME. CLWR. WCTM.
--- NOTE | 2019-02-20 10:09 | NUR ---
Received telephone call from intake at [facility] requesting additional information. Faxed requested info. No other needs identified.
== END 2019-02-18 14:34 | disposition home health service (06) | DRG 291 ==
LOC: M.ERS 13:10 → M.TBA-ER 15:26 → M.2W 15:26
PROVIDERS: Emergency Medicine Emergency Medical Services; Family Medicine; ADMIT Internal Medicine
DX: I11.0 Hypertensive heart disease with heart failure (principal); I63.9 Cerebral infarction, unspecified; E43 Unspecified severe protein-calorie malnutrition; D68.69 Other thrombophilia; G81.91 Hemiplegia, unspecified affecting right dominant side; I50.33 Acute on chronic diastolic (congestive) heart failure; I48.2 Chronic atrial fibrillation; K58.9 Irritable bowel syndrome, unspecified; E78.5 Hyperlipidemia, unspecified; F32.9 Major depressive disorder, single episode, unspecified; F41.9 Anxiety disorder, unspecified; K21.9 Gastro-esophageal reflux disease without esophagitis; M19.90 Unspecified osteoarthritis, unspecified site; I48.0 Paroxysmal atrial fibrillation; I73.9 Peripheral vascular disease, unspecified; Z79.01 Long term (current) use of anticoagulants; Z79.1 Long term (current) use of non-steroidal anti-inflammatories (NSAID); Z91.041 Radiographic dye allergy status; Z79.899 Other long term (current) drug therapy; Z79.82 Long term (current) use of aspirin; Z68.26 Body mass index [BMI] 26.0-26.9, adult